=== PATIENT | male | born 1995 | race Caucasian/White ===

== ENCOUNTER 2021-05-26 01:25 | Emergency (ER) | payer SELFPAY ==
[~2021-05-26] VITALS: Ht 170.2 cm; Wt 59.0 kg
--- NOTE | 2021-05-26 01:37 | NUR ---
KIRAN BIBS C/O RIGHT RING FINGER LACERATION S/P TOUCHING BROKEN GLASS. PATIENT ALERT AND ORIETNED X3. AMBULATORY WITH NON LABORED BREATHING.
[2021-05-26] MEDS ORDERED: GELATIN SPONGE,ABSORBABLE 1 SPONGE SPONGE TP ONE ×2 (01:52→02:00)
[2021-05-26] MEDS ORDERED: TDAP [DIPH/PERTUSSIS/TET] 0.5 ML VIAL IM ONE ×2 (02:00→02:20)
--- NOTE | 2021-05-26 02:25 | NUR ---
Patient discharged to home in stable condition. Written and verbal after care instructions given. Patient verbalizes understanding of instruction.
[2021-05-26 02:26] VITALS: BP 121/68
== END 2021-05-26 02:26 | disposition home or self-care (01) ==
LOC: ER 01:28
DX: S61.214A Laceration without foreign body of right ring finger without damage to nail, initial encounter (principal); Z60.2 Problems related to living alone; W25.XXXA Contact with sharp glass, initial encounter; Y93.89 Activity, other specified; Y92.89 Other specified places as the place of occurrence of the external cause; Y99.8 Other external cause status
CPT/HCPCS: 73140; 90471; 90715; 99283; A6403 ×2